=== PATIENT | female | born 1995 | race Caucasian/White ===

== ENCOUNTER → 2020-06-19 16:06 | Outpatient (CLI) | payer OTHER, SELFPAY ==
--- NOTE | 2020-06-19 16:13 | XR_ITS ---
PROCEDURE: XR SHOULDER RT MIN 2V CLINICAL INDICATION: R SHOULDER PAIN Right shoulder injury today at 10:30 a.m.. COMPARISON: No exams were available for comparison FINDINGS: No fracture or dislocation. No lytic or blastic change. There is normal mineralization. The joint spaces are well-preserved. No significant degenerative/arthritic changes. No erosive changes evident. Other findings:None. IMPRESSION: 1. No acute findings. Unremarkable radiographs of the right shoulder. Dictated by: Rc Morse 06/19/2020 16:34 Electronically signed by Rc Morse in [facility] 06/19/2020 16:34
== END ==
PROVIDERS: PCP Internal Medicine Adolescent Medicine; Visit Provider Internal Medicine Adolescent Medicine
DX: M25.511 Pain in right shoulder (principal)
CPT/HCPCS: 73030

== ENCOUNTER → 2021-06-17 15:57 | Outpatient (CLI) | payer BC, SELFPAY ==
[2021-06-17 16:25] LABS: Coronavirus 19, PCR Not Detected (NotDetected); Influenza A, PCR Not Detected (NotDetected); Influenza B, PCR Not Detected (NotDetected)
== END ==
PROVIDERS: PCP Internal Medicine Adolescent Medicine; Visit Provider Internal Medicine Adolescent Medicine
DX: Z20.822 Contact with and (suspected) exposure to COVID-19 (principal)
CPT/HCPCS: U0003

== ENCOUNTER → 2021-12-13 12:46 | Outpatient (CLI) | payer BC, SELFPAY ==
[2021-12-13 13:25] LABS: Basophils # 0.2 K/mm3 (0-0.2); Basophils % 3.6 % (0.1-2.0); Eosinophils # 0.3 K/mm3 (0.0-0.4); Eosinophils % 4.2 % (0.1-12.0); Hematocrit 44.8 % (37.0-47.0); Hemoglobin 14.6 g/dL (12.2-16.2); Lymphocytes # 2.3 K/mm3 (0.7-4.5); Lymphocytes % 38.6 % (10-50); Mean Corpuscular HGB Conc 32.6 g/dL (31.8-35.4); Mean Corpuscular Hemoglobin 29.6 pg (27.0-31.2); Mean Corpuscular Volume 90.6 fl (81-99); Mean Platelet Volume 8.1 fl (7.4-10.4); Monocytes # 0.3 K/mm3 (0.1-1.0); Monocytes % 4.7 % (1.7-9.3); Neutrophils # 2.9 K/mm3 (1.8-7.8); Neutrophils % 48.9 % (37.0-80.0); Platelet Count 296 K/mm3 (142-424); Red Blood Count 4.95 M/mm3 (4.20-5.40)
[2021-12-13 13:42] LABS: Alanine Aminotransferase 20 U/L (12-78); Albumin Level 4.4 g/dl (3.5-5.0); Albumin/Globulin Ratio 1.6 (1.1-1.8); Alkaline Phosphatase 68 U/L (38-126); Anion Gap 13.2 mEq/L (5-15); Aspartate Amino Transferase 23 U/L (14-36); Bilirubin,Total 0.9 mg/dl (0.2-1.3); Blood Urea Nitrogen 6 mg/dl (7-17); Calcium 9.4 mg/dl (8.4-10.2); Carbon Dioxide 26 mmol/L (22.0-30.0); Chloride 106 mmol/L (98-107); Estimated Glomerular Filt Rate 101 ml/min (>60); GFR (African American) 122 ML/MIN (>60); Globulin 2.7 g/dL (1.3-3.2); Glucose 93 mg/dl (74-100); Potassium 4.2 mmoL/L (3.5-5.1); Sodium 141 mmol/L (136-145); Total Protein,Serum 7.1 g/dl (6.3-8.2)
[2021-12-14 15:11] LABS: Deamidated Gliadin Abs, IgA 10 units (0-19); Deamidated Gliadin Abs, IgG 3 units (0-19); Tissue Transglutaminase IgA Ab <2 U/mL (0-3); Tissue Transglutaminase IgG Ab <2 U/mL (0-5)
== END ==
PROVIDERS: Visit Provider Nurse Practitioner Family
DX: K92.1 Melena (principal)
CPT/HCPCS: 36415; 80053; 83516; 85025

== ENCOUNTER → 2021-12-30 16:45 | Outpatient (CLI) | payer BC, SELFPAY ==
--- NOTE | 2021-12-30 16:53 | XR_ITS ---
PROCEDURE INFORMATION: Exam: XR Left Hand Exam date and time: 12/30/2021 4:53 PM Age: 26 years old Clinical indication: Pain; Finger(s); Left; Patient HX: Injury 2nd finger; Additional info: Acute apin due to trauma TECHNIQUE: Imaging protocol: XR Left hand. Views: 3 or more views. COMPARISON: No relevant prior studies available. FINDINGS: Bones/joints: Normal. Soft tissues: Normal. IMPRESSION: No acute findings.
== END ==
PROVIDERS: PCP Internal Medicine Adolescent Medicine; Visit Provider Nurse Practitioner Family
DX: M79.642 Pain in left hand (principal); G89.11 Acute pain due to trauma
CPT/HCPCS: 73130